=== PATIENT | female | born 1980 | race Caucasian/White ===

== ENCOUNTER → 2016-11-29 | Outpatient (CLI) | payer MEDICAID ==
[~2016-11-29] MED LIST: IBUP-1542 PO
--- NOTE | 2016-11-29 10:05 | RADRPT ---
PROCEDURE: OBSTETRICAL ULTRASOUND WITH ENDOVAGINAL IMAGES CLINICAL INDICATION: SIZE/DATE TECHNIQUE: Multiple sonographic images of the pelvis were obtained utilizing a transabdominal and endovaginal technique. The images were reviewed on a PACS workstation. COMPARISON: None. LMP: 10/12/2016 FINDINGS: The uterus measures 6.2 x 6.8 x 11.7 cm. There is a single live intrauterine with heart rate of 150 beats per minute, mean sa c diameter of 2.29 cm, yolk sac, and crown-rump length of 1.02 cm which is consistent with a gestati onal age of 7 weeks, 1 day . The estimated date of delivery by ultrasound is 07/17/2017 . The estimated gestational age by LMP is 6 weeks, 6 days . The estimated date of delivery by LMP is 07/19/2017 . There are 2 small hypoechoic hypovascular lesions adjacent to the gestational sac measuring 1.4 x 0. 7 cm and 1.1 x 1.0 cm which are likely subchorionic hemorrhages. The right ovary measures 2.3 x 1.6 x 1.8 cm. The left ovary measures 3.3 x 2.2 x 2.3 cm. There is no rmal vascular flow in both ovaries. No significant ovarian lesions are seen. No significant pelvic free fluid is identified. IMPRESSION: Single live intrauterine consistent with a gestational age of 7 weeks, 1 day . The estimated date of delivery is 07/17/2017 . Dating by ultrasound is within 2 days of dating by LMP. 2 small subchorionic hemorrhages measuring up to 1.4 cm and 1.1 cm. RPTAT: EE Physician Gil Date Time Electronically viewed and signed by Physician Gil on 11/29/2016 10:04 /
== END | disposition home or self-care (01) ==
LOC: U/S 09:05
PROVIDERS: ATTEND Obstetrics & Gynecology
DX: O26.849 Uterine size-date discrepancy, unspecified trimester (principal); O09.519 Supervision of elderly primigravida, unspecified trimester; Z3A.00 Weeks of gestation of pregnancy not specified
CPT/HCPCS: 76801; 76817

== ENCOUNTER 2017-07-07 23:24 | Inpatient (IN) | payer MEDICAID ==
[~2017-07-07] VITALS: Ht 157.5 cm; Wt 87.7 kg
[2017-07-07 23:43] VITALS: Ht 157.5 cm; Wt 87.7 kg
[2017-07-07 23:45] VITALS: BP 154/88; PULSE 19; RESP 19
[2017-07-08 00:32] LABS: URINE BLOOD (Dip) POC Negative (NEGATIVE)
--- NOTE | 2017-07-08 02:32 | PN ---
Triage Information Date/Time Reason for visit: Uterine contractions Weeks of Gestation 39 weeks and 1 day gestation /Para 8 para 7 who presents for R/O labor Diabetes: none Hypertention: none Objective Vital Signs Date Time Temp Pulse Resp B/P Pulse Ox O2 Delivery O2 Flow Rate FiO2 07/07/17 23:45 98.2 19 19 154/88 Room Air Heart Rate: 140's Heart Rate Comments NST is reactive Contractions: >10 Minutes Apart Exam cervix 1 cm per nurse Results/Medications Results 24 hrs Laboratory Tests Test 07/08/17 00:40 Bedside Urine pH (LAB) 6.0 Bedside Urine Protein (LAB) 1+ H Bedside Urine Glucose (UA) Negative Bedside Urine Ketones (LAB) Negative Bedside Urine Blood Negative Bedside Urine Nitrite (LAB) Negative Bedside Urine Leukocyte Esterase (L Negative Assessment/Plan Patient to ambulate for 2 hours MITCH MACKENZIE MD Jul 08, 2017 02:32
[2017-07-08] MEDS ORDERED: OXYTOCIN 30 UNITS/LR 500 ML IV SCH ×3 (03:30→06:35)
[2017-07-08] MEDS ORDERED: OXYTOCIN 30 UNITS/LR 500 ML IV PRN ×2 (03:30→07:00)
[2017-07-08] MEDS ORDERED: BUTORPHANOL 2 MG INJ IV PRN (03:30)
[2017-07-08] MEDS ORDERED: HYDROCODONE/APAP (5/325) TAB PO PRN (03:30)
[2017-07-08] MEDS ORDERED: LIDOCAINE 1% (MPF) 30 ML INJ INJ PRN (03:30)
[2017-07-08] MEDS ORDERED: MINERAL OIL LIGHT 10 ML VIAL TOP ONE (03:30)
[2017-07-08] MEDS ORDERED: MISOPROSTOL 200 MCG TAB PR PRN ×2 (03:30→07:00)
[2017-07-08] MEDS ORDERED: METHYLERGONOVINE 0.2 MG INJ IM PRN ×2 (03:30→07:00)
[2017-07-08] MEDS ORDERED: CARBOPROST 250 MCG INJ IM PRN ×2 (03:30→07:00)
[2017-07-08] MEDS ORDERED: AMPICILLIN 2 GM/NS (PMX) 100 ML IV ONE (03:30)
[2017-07-08] MEDS ORDERED: LACTATED RINGER'S 1,000 ML IV PRN (03:30)
[2017-07-08] MEDS: LACTATED RINGER'S 1,000 ML IV SCH (03:39)
[2017-07-08] MEDS ORDERED: FENTAnyl 2MCG/ML-ROPIV 0.2% 100 ML ONE (04:22)
[2017-07-08 04:36] LABS: BASOPHIL # 0.1 10^3/ul (0.0-0.1); BASOPHILS % 0.5 % (0.0-2.0); EOSINOPHILS # 0.1 10^3/ul (0.0-0.5); EOSINOPHILS % 0.9 % (0.0-7.0); HEMATOCRIT 43.5 % (37.0-47.0); HEMOGLOBIN 14.3 g/dl (12.0-16.0); LYMPHOCYTES % 21.7 % (15.0-51.0); MEAN CORPUSCULAR HEMOGLOBIN 29.5 pg (29.0-33.0); MEAN CORPUSCULAR HGB CONC 32.9 g/dl (32.0-37.0); MEAN CORPUSCULAR VOLUME 89.9 fl (82.0-101.0); MONOCYTE # 0.5 10^3/ul (0.3-0.9); MONOCYTES % 5.3 % (0.0-11.0); NEUTROPHILS % 70.9 % (39.0-77.0); PLATELET COUNT 240 10^3/UL (140-415); RED BLOOD COUNT 4.84 10^6/ul (4.20-5.40); RED CELL DISTRIBUTION WIDTH 14.5 % (11.5-14.5); WHITE BLOOD COUNT 9.1 10^3/ul (4.8-10.8)
[2017-07-08 04:49] LABS: INR 0.91; PROTIME 12.2 Sec (12.2-14.2)
[2017-07-08 04:49] LABS: ADD UMIC YES; UR ASCORBIC ACID NEGATIVE (NEGATIVE); UR BACTERIA FEW /HPF (NONE SEEN); UR BILIRUBIN (Dip) NEGATIVE (NEGATIVE); UR BLOOD (Dip) NEGATIVE (NEGATIVE); UR CLARITY SLIGHTLY CLOUDY (CLEAR); UR COLOR YELLOW (YELLOW); UR GLUCOSE (Dip) NEGATIVE (NEGATIVE); UR KETONES (Dip) NEGATIVE (NEGATIVE); UR LEUKOCYTE ESTERASE (Dip) NEGATIVE Leu/ul (NEGATIVE); UR MUCUS MODERATE /HPF (NONE SEEN); UR NITRITE (Dip) NEGATIVE (NEGATIVE); UR RBC 1 /HPF (0-5); UR SPECIFIC GRAVITY (Dip) 1.024 (1.003-1.030); UR SQUAMOUS EPITHELIAL CELL MODERATE /HPF (FEW); UR TOTAL PROTEIN (Dip) 1+ mg/dl (NEGATIVE); UR UROBILINOGEN (Dip) NEGATIVE (NEGATIVE)
[2017-07-08 04:55] LABS: ALANINE AMINOTRANSFERASE 35 IU/L (13-69); ALBUMIN 3.7 g/dl (3.3-4.9); ALBUMIN/GLOBULIN RATIO 0.92; ALKALINE PHOSPHATASE 257 IU/L (42-121); ANION GAP 17 (8-16); ASPARTATE AMINO TRANSFERASE 34 IU/L (15-46); BILIRUBIN,INDIRECT 0.2 mg/dl (0-1.1); BILIRUBIN,TOTAL 0.2 mg/dl (0.2-1.3); BLOOD UREA NITROGEN 9 mg/dl (7-20); CALCIUM 9.8 mg/dl (8.4-10.2); CARBON DIOXIDE 18 mmol/L (21-31); CHLORIDE 104 mmol/L (97-110); CREATININE 0.59 mg/dl (0.44-1.00); GLUCOSE 78 mg/dl (70-220); POTASSIUM 4.2 mmol/L (3.5-5.1); SODIUM 135 mmol/L (135-144); TOTAL PROTEIN 7.7 g/dl (6.1-8.1)
--- NOTE | 2017-07-08 05:48 | TRIAGE ---
OB Triage Datetime Report Generated by CPN: 07/08/2017 05:48 Datetime: 07/08/2017 05:00 Labor Evaluation Frequency: 3 Monitor Mode: External Duration (sec)2399: 60-80 Pattern: Normal: <= 5 Contractions in 10 Minutes Heart Rate FHR Baseline Rate: 135 Monitor Mode: External US FHR Baseline Changes: No Baseline Change Variability: Moderate 6-25 bpm Decelerations: Variable; Prolonged Datetime: 07/08/2017 04:54 Vaginal Exam Dilatation (cms): 9.0 Effacement (%): 100 Station: -1 Exam By: [email or web address] rn Datetime: 07/08/2017 04:52 Interventions: Oxygen Applied; IV Bolus; Sterile Vaginal Exam Datetime: 07/08/2017 04:30 Labor Evaluation Frequency: 3 Monitor Mode: External Duration (sec)2399: 60-110 Pattern: Normal: <= 5 Contractions in 10 Minutes Heart Rate FHR Baseline Rate: 135 Monitor Mode: External US FHR Baseline Changes: No Baseline Change Variability: Moderate 6-25 bpm Accelerations: 15X15 Decelerations: None Datetime: 07/08/2017 04:27 Pain Assessment Pain Assessment Comments: pt. continues to cry out 'pain, pain'. informed pt. that epidural takes some time to become effective, pt. does not seem to comprehend Datetime: 07/08/2017 04:00 Vaginal Exam Dilatation (cms): 5.0 Effacement (%): 80 Station: -2 Exam By: beatriz servin Vaginal Bleeding: Normal Show Presentation 'A': Cephalic Datetime: 07/08/2017 02:52 Vaginal Exam Dilatation (cms): 3.0 Effacement (%): 70 Station: -2 Exam By: Jacky Meade RN Vaginal Bleeding: None Cervix, Consistency: Moderate Cervix, Position: Midposition Presentation 'A': Cephalic Datetime: 07/08/2017 02:51 Monitor Mode: External Contraction Comments: Applied Monitor Mode: External US Comments: Applied Datetime: 07/08/2017 00:04 Arrived By: Wheelchair Arrived From: Home Movement: Present Contractions: Regular Time Contractions Began: 07/07/2017 16:00 Contractions: 2-4 Rupture of Membranes: Denies Vaginal Bleeding: None Vaginal Discharge: Denies Recent Sexual Intercouse: Denies Abdominal Trauma: Not Applicable Patient Complaints: Contractions Time Provider Notified: 07/08/2017 00:11 Provider Notified: Dr Renner Initial Plan: EFM X2, SVE, ambulate for 2hrs and recheck. Datetime: 07/08/2017 00:00 Labor Evaluation Frequency: 2-3 Monitor Mode: External Duration (sec)2399: 50-90 Quality: Moderate Pattern: Normal: <= 5 Contractions in 10 Minutes Resting Tone [place]: Relaxed Heart Rate FHR Baseline Rate: 140 Monitor Mode: External US FHR Baseline Changes: No Baseline Change Variability: Moderate 6-25 bpm Accelerations: 15X15 Decelerations: None Category: Category I
[2017-07-08 06:17] LABS: PARTIAL THROMBOPLASTIN TIME 29.4 Sec (25.0-35.0)
--- NOTE | 2017-07-08 06:32 | LDN ---
Date/Time of Note Date/Time of Note DATE: 07/08/17 TIME: 06:31 Delivery Summary 8 para 7 at 39 weeks and 1 day gestation Weeks of Gestation 39 weeks and 1 day gestation Baby boy Apgars 8, 9 Weight 7 lbs. 10 oz. Placenta Delivered: Spontaneously Meconium: Thick Episiotomy: No Estimated blood loss: 100 Sponge & Needle done & correct: Yes All needle counts correct: Yes Any foreign bodies felt in the: No Problems: Infant Delivery Information Sex Infant Sex: male Apgars 1 Minute: 8 5 Minute: 9 Suctioning Nose & mouth suctioned at chuckie: Yes Umbilical Cord Umbilical cord with: 3 Vessels Cord presentations: no nuchal cord Cord Blood was obtained: Yes Copies To: CC: MARSHAL SHIN MD, BAHAREH MD Jul 08, 2017 06:32
[2017-07-08] MEDS ORDERED: MAGNESIUM HYDROXIDE 30ML CUP PO PRN (07:00)
[2017-07-08] MEDS ORDERED: ONDANSETRON 4 MG INJ IV PRN (07:00)
[2017-07-08] MEDS ORDERED: BENZOCAINE 20% 56 ML SPRAY TOP PRN (07:00)
[2017-07-08] MEDS ORDERED: ACETAMINOPHEN 325 MG TAB PO PRN ×2 (07:00)
[2017-07-08] MEDS ORDERED: WITCH HAZEL/GLYCERIN PAD PR PRN (07:00)
[2017-07-08] MEDS ORDERED: LANOLIN 7 GM TUBE TOP PRN (07:00)
[2017-07-08] MEDS ORDERED: DIBUCAINE 1% 30 GM OINT PR PRN (07:00)
[2017-07-08] MEDS ORDERED: AMPICILLIN 1 GM/NS (PMX) 50 ML IV SCH (07:30)
[2017-07-08 08:10] VITALS: BP 119/73; PULSE 76; RESP 18
[2017-07-08 08:31] VITALS: BP 123/76; PULSE 75; RESP 18
[2017-07-08] MEDS: SENNA/DOCUSATE NA (8.6MG/50MG) TAB PO PRN (09:06)
--- NOTE | 2017-07-08 09:13 | HP ---
Date/Time of Note Date/Time of Note DATE: 07/08/17 TIME: 09:10 OB - History Hx of Present Estimated Due Date: Jul 17, 2017 : 8 Para: 7 Care: Good Care Ultrasounds: Normal mid trimester US Obstetrical Complications: None Medical Complications: None Past Family/Social History * Past Medical, Surgical, Family and Obstetric Histories reviewed from chart. Blood Type: O- Rubella: immune RPR/VDRL: Negative GBS Status: Unknown HBsAG: Negative OB Admission Exam Vital Signs Vital Signs Vital Signs Date Time Temp Pulse Resp B/P Pulse Ox O2 Delivery O2 Flow Rate FiO2 07/08/17 08:31 98.1 75 18 123/76 Room Air Physical Exam HEENT: WNL Heart: Rhythm Normal Lungs: Clear, Equal Abdomen: WNL Extremities: Normal Reflexes: Normal Cervical Dilatation: Fingertip Effacement: 50% Station: -3 Membranes: Intact Heart Rate: 140's Accelerations: Accelerations Present Decelerations: No Decelerations Varibility: Marked Contractions on Admission: >10 Minutes Apart Date/Time Contractions Began: July 08, 2017 at 4 PM Frequency of Contractions: Every 5-10 minute Duration: Over 36 Intensity: Moderate Last 72 hours Lab Results CBC & BMP 07/08/17 03:39 Liver Function Test 07/08/17 03:39 Alanine Aminotransferase (ALT/SGPT) 35 Albumin 3.7 Alkaline Phosphatase 257 H Aspartate Amino Transf (AST/SGOT) 34 Direct Bilirubin 0.00 Total Protein 7.7 OB Assessment/Plan Other Assessment: Term gestation Liver pains Plan: Expectant Management Other plan: Proceed with spontaneous labor MARSHAL SHIN MD Jul 08, 2017 09:13
[2017-07-08] MEDS: LACTATED RINGER'S 1,000 ML IV* SCH (11:10)
[2017-07-08 16:30] VITALS: BP 119/60; PULSE 80; RESP 18
[2017-07-08] MEDS: IBUPROFEN 600 MG TAB PO PRN (17:24)
[2017-07-08 19:45] VITALS: BP 114/65; PULSE 67; RESP 18
[2017-07-09 00:15] VITALS: BP 116/70; PULSE 18; RESP 18
[2017-07-09 04:00] VITALS: BP 124/72; PULSE 77; RESP 18
[2017-07-09] MEDS: IBUPROFEN 600 MG TAB PO PRN ×3 (04:15→17:31)
[2017-07-09 07:30] VITALS: BP 104/64; PULSE 69; RESP 18
[2017-07-09 07:55] LABS: BASOPHILS % 0.5 % (0.0-2.0); EOSINOPHILS # 0.1 10^3/ul (0.0-0.5); HEMATOCRIT 33.1 % (37.0-47.0); HEMOGLOBIN 10.8 g/dl (12.0-16.0); LYMPHOCYTES # 2.1 10^3/ul (0.8-2.9); LYMPHOCYTES % 24.9 % (15.0-51.0); MEAN CORPUSCULAR HEMOGLOBIN 29.8 pg (29.0-33.0); MEAN CORPUSCULAR HGB CONC 32.6 g/dl (32.0-37.0); MEAN CORPUSCULAR VOLUME 91.4 fl (82.0-101.0); MEAN PLATELET VOLUME 11.9 fl (7.4-10.4); MONOCYTE # 0.5 10^3/ul (0.3-0.9); MONOCYTES % 5.4 % (0.0-11.0); NEUTROPHILS % 67.7 % (39.0-77.0); PLATELET COUNT 189 10^3/UL (140-415); RED BLOOD COUNT 3.62 10^6/ul (4.20-5.40); RED CELL DISTRIBUTION WIDTH 14.6 % (11.5-14.5); WHITE BLOOD COUNT 8.3 10^3/ul (4.8-10.8)
[2017-07-09 15:30] VITALS: BP 105/57; PULSE 76; RESP 18
--- NOTE | 2017-07-09 18:48 | DS ---
Date/Time of Note Date/Time of Note home next day or today DATE: 07/09/17 TIME: 18:47 Obstetrical Discharge Record Final Diagnosis Final Diagnosis: Term delivered Other Final Diagnosis S/P vaginal delivery Vaginal Delivery Obstetrical Delivery: Spontaneous Condition on Discharge Physical Assessment Last Vitals: see nurses notes Voiding: Yes Bowel Movement: Yes Breast: Soft, non-tender, Filling Fundus: Firm Abdomen and Incision: soft BS + Episiotomy: NA Calf Tenderness: No Patient Condition: Good MARSHAL SHIN MD Jul 09, 2017 18:48
--- NOTE | 2017-07-09 18:49 | PD.PPDC ---
[employer] Discharge Instruction Provider Information Physician Information 37 y/o female had vaginal delivery Diagnosis Final Diagnosis: S/P vaginal delivery Condition Patient Condition: Good Diet Diet: Resume Regular Diet Activity/Restrictions Activity: Normal Activity May Shower Restrictions: Nothing in the Vagina Return to Work or School: Aug 27, 2017 Follow-up Follow-up with Physician: 4, Week/Weeks (in clinic) Return to clinic for OB Instructions: Breast Tenderness Depression Comment: pelvic rest X 5 weeks MARSHAL SHIN MD Jul 09, 2017 18:49
[2017-07-09] MEDS ORDERED: IBUP-1542 PO (18:50)
[2017-07-09 19:45] VITALS: BP 124/61; PULSE 75; RESP 18
[2017-07-10 04:15] VITALS: BP 96/68; PULSE 72; RESP 18
[2017-07-10 08:15] VITALS: BP 122/82; PULSE 77; RESP 16
[2017-07-10] MEDS: SENNA/DOCUSATE NA (8.6MG/50MG) TAB PO PRN (08:48)
[2017-07-10] MEDS: LACTATED RINGER'S 1,000 ML IV SCH ×3 (08:49→08:51)
[2017-07-10] MEDS: LACTATED RINGER'S 1,000 ML IV* SCH ×3 (08:50→08:52)
[2017-07-10] MEDS: IBUPROFEN 600 MG TAB PO PRN (12:47)
== END 2017-07-10 16:12 | disposition home or self-care (01) | DRG 775 ==
LOC: OBT 23:24 → L-D 23:25 → OBT 07-08 03:55 → L-D 07-08 03:55 → PP1 07-08 08:12
PROVIDERS: ADMIT Obstetrics & Gynecology; ATTEND Obstetrics & Gynecology
PROC: 10E0XZZ Delivery of Products of Conception, External Approach (ICD-10-PCS; principal; 2017-07-08)
PROC: 4A1HXCZ Monitoring of Products of Conception, Cardiac Rate, External Approach (ICD-10-PCS; 2017-07-08)
PROC: 3E0234Z Introduction of Serum, Toxoid and Vaccine into Muscle, Percutaneous Approach (ICD-10-PCS; 2017-07-09)
DX: O36.0930 Maternal care for other rhesus isoimmunization, third trimester, not applicable or unspecified (principal); E66.9 Obesity, unspecified; O99.214 Obesity complicating childbirth; Z68.35 Body mass index [BMI] 35.0-35.9, adult; O77.0 Labor and delivery complicated by meconium in amniotic fluid; Z3A.38 38 weeks gestation of pregnancy; Z37.0 Single live birth
CPT/HCPCS: 62319; 80053; 81001; 81003; 85025; 85384; 85610; 85730; 86592; 86850; 86885; 86900; 86901; 87340; 88307; 99464; G0463; J0290; J2590; J2790; J3010; J7120